=== PATIENT | female | born 1980 | race Caucasian/White ===

== ENCOUNTER 2016-09-23 07:39 | Emergency (ER) | payer BC ==
[2016-09-23 07:47] VITALS: TEMP 98.1; BMI 32.8
[2016-09-23] MEDS ORDERED: NS 1,000 ML IV ONE (08:04)
[2016-09-23 08:08] LABS: LEUKOCYTES/URINE NEG (NEGATIVE); NITRITE/URINE NEG (NEGATIVE); URINE OCCULT BLOOD 2+ (NEG/TRACE); WBC/URINE 0-2 (0-5)
[2016-09-23 08:44] LABS: AUTOMATED BASOPHIL 0.5 % (0-2); AUTOMATED EOSINOPHIL 2.9 % (0-5); AUTOMATED LYMPH 22.2 % (17-44); AUTOMATED MONOCYTE 6.8 % (3-10); AUTOMATED NEUTROPHIL 67.6 % (45-76); MPV 8.9 fL (7.4-10.4)
--- NOTE | 2016-09-23 08:54 | EDPRACDOC ---
- General Information Chief Complaint: Abdominal Pain Stated Complaint: ABDOMINAL PAIN (8 WEEKS ) Time Seen by Provider: 09/23/16 07:47 Information Source: Patient Mode Of Arrival: Car Home Medications: Home Medications No Home Medications 09/23/16 Allergies/Adverse Reactions: Allergies Allergy/AdvReac Type Severity Reaction Status Date / Time doxycycline Allergy Severe Anaphylaxis Verified 09/23/16 07:46 * oxycodone HCl [From Percocet] Allergy Itching Verified 09/23/16 07:46 - History of Present Illness Onset: YEST HPI: PT IS APPROX 8 WEEKS AND HAS HAD INTERMITTENT RLQ ABD PAIN. THE PT SAID THAT SHE HAS HAD AN US AT THE OBGYN'S OFFICE AND IT WAS OK. PT SAID SHE'S HAD ESSURE REVERSAL. THE PT DENIES ANY VAGINAL BLEEDING. Pain Location: Reports: RLQ Pain Context: Reports: Spontaneous Pain Severity: Moderate Pain Quality: Reports: Cramping Pain Radiation: Reports: No Radiation Last Menstrual Period: 07/18/16 : Yes (approx 8 weeks) Control Method: Reports: None Adult Abdominal History: Reports: Abdominal Surgery Modifying Factors: improves with: Nothing ED Past Medical History - Patient Medical History Psychological History: Reports: Depression Systemic History: Reports: Cancer (ovarian) Surgical History: Reports: Other (CSXN, ESSURE REVERSAL). Denies: Hysterectomy - Social Medical History Smoking Status: Heavy tobacco smoker (5 or more cigarettes/day or daily pipe/ cigar) ETOH: None Substance Abuse: None Lives In: Home EDM Review of Systems - Review of Systems ROS Negative Except as Marked: Yes All systems reviewed and were negative except as marked Gastrointestinal: Pain - Physical Exam Constitutional: Alert (Awake), No apparent distress Oriented to: Time, Person, Place Last recorded Vital Signs: Last Vital Signs Temp 98.1 F 09/23/16 07:44 Pulse 76 09/23/16 08:24 Resp 18 09/23/16 08:24 BP 118/59 L 09/23/16 08:24 Pulse Ox 99 09/23/16 08:24 Oxygen Pulse Oxygen Saturation 99 O2 Device Oxygen Flow Rate Fraction of Inspired Oxygen ( FIO2) - HEENT Head: Normal ( normocephalic) Eye Exam: Normal (PERRL, EOMI, Sclera white) Oropharynx: Normal (Pharynx:Moist without exudate,Gums-no swelling) ENT EAC: Normal TMJ: Normal Nose: No Symptoms Reported (septum midline) Neck: Normal (FROM, trachea at midline) - Respiratory/Cardiovascular Respiratory: Normal - CTA (BBS clear to auscultation without adventitious sounds ) Cardiovascular: Normal (RRR without murmur, gallop or rub) - GI Auscultation: Normal (NABS) Palpation: Normal (Soft,No rebound or guarding, non distended) Tenderness: Mild, RLQ Katz's Sign: Negative - Bladder: Normal External: Normal Vagina: Normal Cervix: Normal Uterus: Normal size Adnexa: Bilateral: Normal - Musculoskeletal Back: Normal (Non-Tender) Extremities: Normal (Normal tone, Pulses 2+ No cyanosis or edema, FROM) - Integumentary Skin: Normal, Warm, Dry Lymphatics: Normal (no adenopathy) - Neurologic Memory Impaired: Normal Motor Function: Normal (Normal tone, Pulses 2+ No cyanosis or edema, FROM) Cranial Nerve: Normal (CN II-X11 intact sensation, strength 5/5) Cerebellar: Normal Mood Description: Normal Thought: Coherent Perception: Normal - Re-evaluation Re-evaluation 1 Re-evaluation Time: 09:51 (improved) - Results 09/23/16 08:35 09/23/16 08:35 WBC 8.1 xk/uL (3.8-10.8) 09/23/16 08:35 RBC 4.02 xM/uL (4.20-5.40) L 09/23/16 08:35 Hgb 12.7 g/dL (12.0-16.0) 09/23/16 08:35 Hct 37.2 % (36-47) 09/23/16 08:35 MCV 93 fL (81-99) 09/23/16 08:35 MCH 31.6 pg (27-32) 09/23/16 08:35 MCHC 34.1 g/dl (33-36) 09/23/16 08:35 RDW 12.6 % (11.5-14.5) 09/23/16 08:35 Plt Count 216 xk/uL (130-400) 09/23/16 08:35 MPV 8.9 fL (7.4-10.4) 09/23/16 08:35 Neut % (Auto) 67.6 % (45-76) 09/23/16 08:35 Lymph % (Auto) 22.2 % (17-44) 09/23/16 08:35 Rich % (Auto) 6.8 % (3-10) 09/23/16 08:35 Eos % (Auto) 2.9 % (0-5) 09/23/16 08:35 Baso % (Auto) 0.5 % (0-2) 09/23/16 08:35 Absolute Neuts (auto) 5.43 xk/uL (1.7-8.2) 09/23/16 08:35 Absolute Lymphs (auto) 1.78 xk/uL (0.65-4.75) 09/23/16 08:35 Sodium 139 mEq/L (137-146) 09/23/16 08:35 Potassium 4.1 mEq/L (3.5-5.1) 09/23/16 08:35 Chloride 107 mEq/L (98-107) 09/23/16 08:35 Carbon Dioxide 23 mMOL/L (22-33) 09/23/16 08:35 Anion Gap 13 mEq/L (8-16) 09/23/16 08:35 BUN 11 MG/DL (7-17) 09/23/16 08:35 Creatinine 0.50 MG/DL (0.52-1.04) L 09/23/16 08:35 Estimated GFR (MDRD) > 60 mL/min (>=60) 09/23/16 08:35 Glucose 97 mg/dL (70-99) 09/23/16 08:35 Calculated Osmolality 267 MOs/Kg (270-290) L 09/23/16 08:35 Calcium 9.2 MG/DL (8.4-10.2) 09/23/16 08:35 Total Bilirubin 0.5 MG/DL (0.2-1.3) 09/23/16 08:35 AST 27 IU/L (14-36) 09/23/16 08:35 ALT 28 IU/L (9-52) 09/23/16 08:35 Alkaline Phosphatase 56 IU/L (38-126) 09/23/16 08:35 Total Protein 7.4 G/DL (6.3-8.2) 09/23/16 08:35 Albumin 4.1 G/DL (3.5-5.0) 09/23/16 08:35 Beta HCG, Quant 69870.7 mIU/mL (<5) 09/23/16 08:35 Urine Color Pale yellow 09/23/16 07:46 Urine Clarity Sl hzy 09/23/16 07:46 Urine pH 5.0 (5.0-8.0) 09/23/16 07:46 Ur Specific [place] 1.020 (1.003-1.035) 09/23/16 07:46 Urine Protein Neg (NEG/TRACE) 09/23/16 07:46 Urine Glucose (UA) Neg (NEGATIVE) 09/23/16 07:46 Urine Ketones Neg (NEGATIVE) 09/23/16 07:46 Urine Occult Blood 2+ (NEG/TRACE) H 09/23/16 07:46 Urine Nitrite Neg (NEGATIVE) 09/23/16 07:46 Urine Bilirubin Neg (NEGATIVE) 09/23/16 07:46 Urine Urobilinogen <2.0 MG/DL (0-1) 09/23/16 07:46 Ur Leukocyte Esterase Neg (NEGATIVE) 09/23/16 07:46 Urine RBC 2-5 (0-5) 09/23/16 07:46 Urine WBC 0-2 (0-5) 09/23/16 07:46 Ur Epithelial Cells 1+ 09/23/16 07:46 Urine Mucus Occ (NEG/OCC) 09/23/16 07:46 Blood Type A POSITIVE 09/23/16 08:35 Microbiology 09/23/16 08:20 Trichomonas [place] - Final Vaginal 09/23/16 08:20 SHARIF Preparation - Final Vaginal Lab Results 09/23/16 09/23/16 09/23/16 08:35 08:35 08:35 WBC 8.1 RBC 4.02 L Hgb 12.7 Hct 37.2 MCV 93 MCH 31.6 MCHC 34.1 RDW 12.6 Plt Count 216 MPV 8.9 Neut % (Auto) 67.6 Lymph % (Auto) 22.2 Rich % (Auto) 6.8 Eos % (Auto) 2.9 Baso % (Auto) 0.5 Absolute Neuts (auto) 5.43 Absolute Lymphs (auto) 1.78 Sodium 139 Potassium 4.1 Chloride 107 Carbon Dioxide 23 Anion Gap 13 BUN 11 Creatinine 0.50 L Estimated GFR (MDRD) > 60 Glucose 97 Calculated Osmolality 267 L Calcium 9.2 Total Bilirubin 0.5 AST 27 ALT 28 Alkaline Phosphatase 56 Total Protein 7.4 Albumin 4.1 Beta HCG, Quant 27476.7 Urine Color Urine Clarity Urine pH Ur Specific [place] Urine Protein Urine Glucose (UA) Urine Ketones Urine Occult Blood Urine Nitrite Urine Bilirubin Urine Urobilinogen Ur Leukocyte Esterase Urine RBC Urine WBC Ur Epithelial Cells Urine Mucus Blood Type A POSITIVE 09/23/16 07:46 WBC RBC Hgb Hct MCV MCH MCHC RDW Plt Count MPV Neut % (Auto) Lymph % (Auto) Rich % (Auto) Eos % (Auto) Baso % (Auto) Absolute Neuts (auto) Absolute Lymphs (auto) Sodium Potassium Chloride Carbon Dioxide Anion Gap BUN Creatinine Estimated GFR (MDRD) Glucose Calculated Osmolality Calcium Total Bilirubin AST ALT Alkaline Phosphatase Total Protein Albumin Beta HCG, Quant Urine Color Pale yellow Urine Clarity Sl hzy Urine pH 5.0 Ur Specific [place] 1.020 Urine Protein Neg Urine Glucose (UA) Neg Urine Ketones Neg Urine Occult Blood 2+ H Urine Nitrite Neg Urine Bilirubin Neg Urine Urobilinogen <2.0 Ur Leukocyte Esterase Neg Urine RBC 2-5 Urine WBC 0-2 Ur Epithelial Cells 1+ Urine Mucus Occ Blood Type - Diagnostic Imaging Abdomen Image interpreted by: Radiologist 09/23/16 09:50 1. Single live intrauterine with a measured gestational age of 8 weeks and 1 day. No evidence of a complication. Decision Time to Discharge: 09:51 - Departure Yes I personally saw and evaluated the patient. Disposition: Home Condition: Good Final Diagnosis: Abdominal pain, Intrauterine Instructions: Acute Abdominal Pain (ED) Education/Counseling Given To: Patient Education/Counseling Given Regarding: Diagnosis, Treatment, Follow Up Referrals: Neli Hernandez MD [Primary Care Provider] - One Week Darien Sharpe MD [Staff Physician] - One Week Prescriptions: No Action No Home Medications 0 NA DIR #0 info Additional Instructions: tylenol prn pain
[2016-09-23 08:56] LABS: BLOOD UREA NITROGEN 11 MG/DL (7-17); CALCIUM 9.2 MG/DL (8.4-10.2); CALCULATED OSMOLALITY 267 MOs/Kg (270-290); CHLORIDE 107 mEq/L (98-107); GLUCOSE 97 mg/dL (70-99); SODIUM LEVEL 139 mEq/L (137-146); TOTAL PROTEIN 7.4 G/DL (6.3-8.2)
[2016-09-23 09:48] LABS: QUANTITATIVE SERUM HCG 84725.7 mIU/mL (<5)
--- NOTE | 2016-09-23 09:48 | DIRPT ---
CLINICAL DATA: patient. Evaluate for ectopic. Beta HCG level is 15,000. EXAM: OBSTETRIC <14 WK US AND TRANSVAGINAL OB US TECHNIQUE: Both transabdominal and transvaginal ultrasound examinations were performed for complete evaluation of the gestation as well as the maternal uterus, adnexal regions, and pelvic cul-de-sac. Transvaginal technique was performed to assess early . COMPARISON: None. FINDINGS: Intrauterine gestational sac: Visualized/normal in shape. Yolk sac: Yes Embryo: Yes Cardiac Activity: Yes Heart Rate: 158 bpm CRL: 16.9 mm 8 w 1 d US EDC: 05/04/2017 Subchorionic hemorrhage: None visualized. Maternal uterus/adnexae: No uterine masses. Cervix is unremarkable. Normal ovaries. No adnexal masses. No significant pelvic free fluid. IMPRESSION: 1. Single live intrauterine with a measured gestational age of 8 weeks and 1 day. No evidence of a complication. Electronically Signed By: Franki Bagley M.D. On: 09/23/2016 09:45
[2016-09-23 10:07] VITALS: BP 115/69; PULSE 70
[2016-09-24 18:40] LABS: CHLAMY BY NUCLEIC ACID AMP Negative (Negative)
[2016-09-25 07:09] LABS: GC BY NUCLEIC ACID AMP Negative (Negative)
== END 2016-09-23 10:17 | disposition home or self-care (01) ==
LOC: ED 07:39
DX: O26.891 Other specified pregnancy related conditions, first trimester (principal); R10.31 Right lower quadrant pain; O99.331 Smoking (tobacco) complicating pregnancy, first trimester; F17.200 Nicotine dependence, unspecified, uncomplicated; Z3A.08 8 weeks gestation of pregnancy
CPT/HCPCS: 36415; 76801; 76817; 80053; 81001; 84702; 85025; 86900; 86901; 87210; 87220; 87491; 87591; 96360; 99283